=== PATIENT | male | born 1975 | race African-American/Black ===

== ENCOUNTER → 2021-10-22 | Outpatient (CLI) | payer OTHER ==
--- NOTE | 2021-10-23 05:45 | MR ---
EXAMINATION TYPE: MR brain wo/w con DATE OF EXAM: 10/22/2021 COMPARISON: 07/07/2014 HISTORY: Migraines. CONTRAST: Standard multiplanar, multisequence MRI departmental protocol images were obtained without contrast a nd with 10 mL intravenous Gadavist gadolinium contrast. There is some mild cerebral atrophy. On the T2 and FLAIR images there are numerous foci of abnormal i ncreased signal at the alaniz-white matter junction both cerebral hemispheres. Total number is approxim ately 30 and these lesions measure up to 8 mm. There is no midline shift. There is no sign of intracr anial hemorrhage. There is 3 mm focus of increased signal in the anterior left side of the yojana. Cere bellum appears intact. Corpus callosum is intact. There is no evidence of a sellar mass. There is no evidence of orbital mass. Diffusion images show no sign of an acute infarct. The contrast images show no pathologic enhancement. There is normal enhancement of the venous sinuses . IMPRESSION: Numerous white matter high signal foci are somewhat peripheral and more likely related to microvascul ar ischemia. No enhancement. Demyelinating disease not excluded. Lesions in the white matter are slig htly increased compared to last exam.
== END | disposition home or self-care (01) ==
LOC: RADMRIMAIN 21:41
PROVIDERS: ATTEND Physician Assistant Medical
DX: G43.009 Migraine without aura, not intractable, without status migrainosus (principal)
CPT/HCPCS: 70553; A9585

== ENCOUNTER 2022-02-08 19:08 | Emergency (ER) | payer OTHER ==
[2022-02-08] MEDS ORDERED: ASPIRIN 81 MG PO STA (19:57)
[2022-02-08] MEDS ORDERED: NITROGLYCERIN SL TABS 0.4 MG TAB SUBLINGUAL STA (19:58)
--- NOTE | 2022-02-08 20:00 | ED ---
Chest Pain HPI - General Chief Complaint: Chest Pain Stated Complaint: Chest/jaw pain,high BP Time Seen by Provider: 02/08/22 19:48 Source: patient, RN notes reviewed Mode of arrival: ambulatory Limitations: no limitations - History of Present Illness Initial Comments: 47-year-old male with a history of fibromyalgia no personal history of heart disease though his mother in his age of a cardiac arrest who states that he's been having 3 days of intermittent pain across his chest and 4 days of jaw pain and right side. Most the pain is described as sharp he currently is pain is 3-4/10 in his right jaw. Prior to these presentations he's never had pain like this before. He additionally complains some other pains that seem to be unrelated. He has had shoulder pain hip pain back pain relates this to his fibromyalgia. The pain in the chest jaw area has been severe is 5/10 severity. Patient does admit to being a smoker of both marijuana and tobacco. MD Complaint: chest pain, other - Related Data Home Medications Medication Instructions Recorded Confirmed Amitriptyline HCl [Elavil] 10 mg PO HS 02/08/22 02/08/22 Ibuprofen [Motrin Ib] 200 mg PO Q8H PRN 02/08/22 02/08/22 Multivit-Mins/Iron/Folic/Lycop 1 tab PO DAILY 02/08/22 02/08/22 [Centrum Men's Tablet] Pregabalin [Lyrica] 50 mg PO HS 02/08/22 02/08/22 Ubidecarenone [Co Q-10] 200 mg PO DAILY 02/08/22 02/08/22 Vitamin B Complex 1 cap PO DAILY 02/08/22 02/08/22 amLODIPine [Norvasc] 10 mg PO DAILY 02/08/22 02/08/22 Previous Rx's Medication Instructions Recorded Nitroglycerin 0.4 mg SUBLINGUAL Q5M #25 tab 02/08/22 Allergies Allergy/AdvReac Type Severity Reaction Status Date / Time No Known Allergies Allergy Verified 02/08/22 21:14 Review of Systems ROS Statement: Those systems with pertinent positive or pertinent negative responses have been documented in the HPI. ROS Other: All systems not noted in ROS Statement are negative. Past Medical History Past Medical History: Fibromyalgia, Rheumatoid Arthritis (RA) Additional Past Medical History / Comment(s): "lesions on brain" History of Any Multi-Drug Resistant Organisms: None Reported Past Surgical History: No Surgical Hx Reported Past Psychological History: No Psychological Hx Reported Smoking Status: Current every day smoker Past Alcohol Use History: None Reported Past Drug Use History: Marijuana General Exam - General Exam Comments Initial Comments: This a well-developed well-nourished awake alert oriented 3 male Limitations: no limitations General appearance: alert, in no apparent distress Head exam: Present: atraumatic, normocephalic, normal inspection Eye exam: Present: normal appearance, PERRL, EOMI. Absent: scleral icterus, conjunctival injection, periorbital swelling ENT exam: Present: normal exam, mucous membranes moist Neck exam: Present: normal inspection, full ROM, other (ALLERGY). Absent: tenderness, meningismus, lymphadenopathy Respiratory exam: Present: normal lung sounds bilaterally. Absent: respiratory distress, wheezes, rales, rhonchi, stridor Cardiovascular Exam: Present: regular rate, normal rhythm, normal heart sounds. Absent: systolic murmur, diastolic murmur, rubs, gallop, clicks GI/Abdominal exam: Present: soft, normal bowel sounds. Absent: distended, tenderness, guarding, rebound, rigid Extremities exam: Present: normal inspection, full ROM, normal capillary refill. Absent: tenderness, pedal edema, joint swelling, calf tenderness Back exam: Present: normal inspection Neurological exam: Present: alert, oriented X3, CN II-XII intact Psychiatric exam: Present: normal affect, normal mood Skin exam: Present: warm, dry, intact, normal color. Absent: rash Course Vital Signs 02/08/22 02/08/22 19:19 20:30 Temperature 97.8 F Pulse Rate 85 83 Respiratory 16 20 Rate Blood Pressure 136/98 121/88 O2 Sat by Pulse 98 97 Oximetry - Reevaluation(s) Reevaluation #1: 02/08/22 21:58 Patient did seem to get resolution of his symptoms after nitro and aspirin. Chest Pain MDM - MDM Imaging reviewed no acute findings. I did have one discussed with patient's findings. The initial presentation appears be consistent with angina I did offer admission to the patient he does not want to be admitted this time he does have an appointment to see his doctor in 2 days. We did discuss return parameters in detail patient will be discharged with instructions to take a baby aspirin daily and a short prescription of nitroglycerin will be ordered. We also did discuss smoking cessation and risks of pain. Disposition Clinical Impression: Atypical chest pain, Smoking Disposition: HOME SELF-CARE Condition: Stable Instructions (If sedation given, give patient instructions): Chest Pain (ED), How to Stop Smoking (ED) Additional Instructions: One baby aspirin daily and nitroglycerin when necessary chest pain Prescriptions: Nitroglycerin 0.4 mg SUBLINGUAL Q5M #25 tab Is patient prescribed a controlled substance at d/c from ED?: No Referrals: Triny Aviles MD [Primary Care Provider] - 1-2 days Decision Date: 02/08/22 Decision Time: 22:10
[2022-02-08 20:11] LABS: Basophils # (A) 0.2 k/uL (0-0.2); Basophils % (A) 2 %; Eosinophils # (A) 0.3 k/uL (0-0.7); Eosinophils % (A) 3 %; HCT 48.4 % (39.0-53.0); HGB 15.2 gm/dL (13.0-17.5); Lymphocytes # (A) 1.7 k/uL (1.0-4.8); Lymphocytes % (A) 20 %; MCH 29.9 pg (25.0-35.0); MCHC 31.4 g/dL (31.0-37.0); MCV 95.3 fL (80.0-100.0); Mean Platelet Volume 7.2; Monocytes # (A) 0.6 k/uL (0-1.0); Monocytes % (A) 7 %; Neutrophils # (A) 5.6 k/uL (1.3-7.7); Neutrophils % (A) 66 %; Platelet Count 253 k/uL (150-450); RBC 5.09 m/uL (4.30-5.90); RDW 12.6 % (11.5-15.5); WBC 8.5 k/uL (3.8-10.6)
--- NOTE | 2022-02-08 20:12 | XR ---
EXAMINATION TYPE: XR chest 2V DATE OF EXAM: 02/08/2022 8:04 PM COMPARISON: None TECHNIQUE: XR chest 2V Frontal and lateral views of the chest. CLINICAL INDICATION:Male, 47 years old with history of Chest pain; FINDINGS: Lungs/Pleura: There is flattening of the diaphragm with increased lucency of the lungs. No evidence o f pneumothorax, pleural effusion or focal consolidation. Pulmonary vascularity: Unremarkable. Heart/mediastinum: Cardiomediastinal silhouette is unremarkable. Musculoskeletal: No acute osseous pathology. IMPRESSION: 1. No acute cardiopulmonary disease process. 2. COPD changes.
[2022-02-08 20:31] VITALS: RESP 20
[2022-02-08 20:34] LABS: Partial Thromboplastin Time 27.5 sec (22.0-30.0); Prothrombin Time 10.9 sec (9.0-12.0)
[2022-02-08 20:47] LABS: Potassium 5.2 mmol/L (3.5-5.1)
[2022-02-08 20:48] LABS: ALT 65 U/L (4-49); AST 51 U/L (17-59); African American GFR (CKD) >90 (>60 ml/min/1.73 sqM); Albumin 4.5 g/dL (3.5-5.0); Alkaline Phosphatase 105 U/L (38-126); Anion Gap 6 mmol/L; Blood Urea Nitrogen 15 mg/dL (9-20); Calcium 9.7 mg/dL (8.4-10.2); Carbon Dioxide 27 mmol/L (22-30); Chloride 104 mmol/L (98-107); Glucose 95 mg/dL (74-99); Magnesium 1.6 mg/dL (1.6-2.3); Non-African American GFR(CKD) 79 (>60 ml/min/1.73 sqM); Sodium 137 mmol/L (137-145); Total Bilirubin 0.6 mg/dL (0.2-1.3); Total Protein 7.7 g/dL (6.3-8.2)
[2022-02-08 23:37] VITALS: BP 126/58; PULSE 82; TEMP 98
== END 2022-02-08 22:40 | disposition home or self-care (01) ==
LOC: EC 19:08
DX: R07.89 Other chest pain (principal); R68.84 Jaw pain; F17.200 Nicotine dependence, unspecified, uncomplicated; J44.9 Chronic obstructive pulmonary disease, unspecified; M79.7 Fibromyalgia; Z79.1 Long term (current) use of non-steroidal anti-inflammatories (NSAID)
CPT/HCPCS: 36415; 71046; 80053; 82550; 83735; 84484; 85025; 85379; 85610; 85730; 99285

== ENCOUNTER → 2022-08-18 | Outpatient (CLI) | payer OTHER ==
[2022-08-18 11:12] VITALS: BP 131/88; PULSE 75; RESP 18; TEMP 97.9
--- NOTE | 2022-08-18 14:43 | P.PAINPG ---
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 Pt states pain level is at 5 /10 in intensity, constant, localized in the mid to lower lumbar spine, tight in character w shooting pain towards the RLE. Pain is provoked by walking/ standing for periods of 15 min. Pain is alleviated by massage at home, THC products, therma heat patches, repositioning and rest. PMH: Fibromyalgia, RA PSH: Denies SH: Daily tobacco use, No ETOH abuse, +Cannabis use. FH: Non contributory All: NKDA Meds: See list REVIEW OF ORGAN SYSTEMS: CONSTITUTIONAL: No fevers or chills. No recent weight loss. NEUROLOGICAL: + numbness and tingling along the distal extremities. No seizure disorders or headaches. MUSCULOSKELETAL: + pain PSYCHIATRIC: Denies current depression or suicidal thoughts. Physical Examinations : Constitutional : Cooperative , not in acute distress . Neurologic : Cranial nerve II to XII intact. No focal neurological deficits. Psychiatric : alert & oriented x 3. Matching mood & appropriate affect. Judgment & insight intact. Musculoskeletal : Cervical Spine Motor strength in the deltoid and biceps: Normal right side. Normal Left side Motor strength biceps and the wrist extensors: Normal right side . Normal left side Motor strength in the triceps muscle: Normal right side. Normal left side Deep tendon reflexes: Normal at the biceps. Normal at Brachioradialis. Normal at triceps Vertebral body tenderness to deep palpation over Cervical facet loading test: positive bilaterally Spurling test: positive bilaterally Neck distraction test: positive bilaterally Nils sign: positive bilaterally Lumbar spine Motor strength lower extremities ,thigh and legs 5/5 Right side , 5/5 Left side Deep tendon reflexes : Normal Knee Jerk. Normal Ankle Jerk Vertebral body tenderness over L4, L5 Lumbar facet Loading Test: positive Right / positive Left Range of motion of the lumbar spine Flexion 30 degrees, extension 10 degrees Straight Leg Raise test: Left/ Right positive at degree Baylee test: positive right / positive left. Severe tenderness over the Sacroiliac joint on the Right / Left sides Gaenslen test: positive bilaterally Seated flexion test: positive bilaterally. Sacral spine : Severe tenderness over the Sacroiliac joint: right side / left side Range of motion: Flexion of the lumbar spine <60 degrees Range of motion: Extension of the lumbar spine <20 degrees Gaenslen's Test positive Vance's Test positive Baylee test: positive right side / left side Thigh Thrust Test Sacral Thrust Test Imaging: To obtain x ray of the lumbar spine from 2021 from [facility] on Assessment/ Plan : Lumbar DDD Recommendation of obtaining lumbar spine imaging. Script for MRI without contrast of the lumbar spine re: M51.36. May need PT though pt states that his insurance plan has not covered it in the past. May return to our clinic within 4 - 6 wks for a re evaluation. Risks, benefits of procedure discussed and patient verbalized understanding. Denies aspirin or anti- coagulant use or medical history of diabetes. Protocol for discontinuation/ continuation of medications julia procedure discussed. All questions answered. I have spent greater than 30 minutes on patient care today. Dr Rose was available by phone for the evaluation of this patient. The time was used to review the medical records including relevant urine studies and Prescription history (MAPs), review of the available imaging, evaluation and examination of the patient, coordination of care with the medical staff and if applicable referring physicians, as well as creation of the medical record Home Medications: Ambulatory Orders Amitriptyline HCl [Elavil] 10 mg PO HS 02/08/22 Ibuprofen [Motrin Ib] 200 mg PO Q8H PRN 02/08/22 Multivit-Mins/Iron/Folic/Lycop [Centrum Men's Tablet] 1 tab PO DAILY 02/08/22 Nitroglycerin 0.4 mg SUBLINGUAL Q5M #25 tab 02/08/22 Pregabalin [Lyrica] 50 mg PO HS 02/08/22 Ubidecarenone [Co Q-10] 200 mg PO DAILY 02/08/22 Vitamin B Complex 1 cap PO DAILY 02/08/22 amLODIPine [Norvasc] 10 mg PO DAILY 02/08/22 Controlled Substance Measures - Controlled Substance Measures Is patient prescribed a controlled substance at discharge?: No
== END ==
LOC: PNWHC3 09:03
PROVIDERS: ATTEND Specialist
DX: M51.36 Other intervertebral disc degeneration, lumbar region (principal); M06.9 Rheumatoid arthritis, unspecified; F17.200 Nicotine dependence, unspecified, uncomplicated
CPT/HCPCS: 99211

== ENCOUNTER → 2022-09-07 | Outpatient (CLI) | payer OTHER ==
--- NOTE | 2022-09-07 22:06 | MR ---
EXAMINATION TYPE: MR lumbar spine wo con DATE OF EXAM: 09/07/2022 9:56 PM COMPARISON: 12/08/2014. CLINICAL INDICATION:Male, 47 years old with history of M51.36; TECHNIQUE: Multi planar, multi sequence imaging was performed utilizing: T1-weighted, T2-weighted, a nd turbo inversion recovery imaging of the lumbar spine. IV Contrast: None. FINDINGS: Alignment: The lumbar vertebral bodies have preserved heights and alignment. Cord: The conus medullaris and the distal spinal cord appear unremarkable with regards to their signa l intensity and morphology. Bones/Discs: Bone signal is within normal limits. Minimal osteophyte formation most pronounced at L2-L3. Mild Modic endplate changes superior anterior endplate of L4. The signal is mildly desiccated L5-S1. L1-L2: No evidence of significant spinal canal stenosis or neural foraminal stenosis. L2-L3: No evidence of significant spinal canal stenosis or neural foraminal stenosis. L3-L4: No evidence of significant spinal canal stenosis or neural foraminal stenosis. L4-L5: Disc bulge and facet joint arthropathy result in no significant spinal canal and mild bilatera l neural foraminal stenosis. L5-S1: No evidence of significant spinal canal stenosis. Facet joint arthropathy mild bilateral neura l foraminal stenosis. Other findings: None. IMPRESSION: 1. No significant change from prior, No definitive evidence of disc herniation or significant spinal canal stenosis. Nothing to correlate patient's radiculopathy symptoms. 2. Minimal disc degeneration with associated osteoarthritic changes.
== END | disposition home or self-care (01) ==
LOC: RADMRIMAIN 09:10
PROVIDERS: ATTEND Physician Assistant Medical
DX: M51.36 Other intervertebral disc degeneration, lumbar region (principal); M47.816 Spondylosis without myelopathy or radiculopathy, lumbar region
CPT/HCPCS: 72148

== ENCOUNTER → 2022-09-21 | Outpatient (CLI) | payer OTHER ==
[2022-09-21 09:51] VITALS: BP 162/82; PULSE 75; RESP 18; TEMP 98.1
--- NOTE | 2022-09-21 14:33 | P.PAINPG ---
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 Pain level is currently at 7 /10 in intensity, constant, localized in the lumbar spine, dull/ achy in character w shooting towards the BLEs. Pain is provoked by sedentary for several hours at bedtime. Pain is alleviated with PT but his insurance wouldn't cover it, massage therapy at home, topicals, medications are contraindicated for work, +THC products, repositioning and rest. Interventional pain procedures completed include Denies Patient is currently on Denies Patient denies any side effects of the medication(s), denies excessive drowsiness or sleepiness, denies suicidal ideation and reports that the current pain medication is helping to control the pain and improve activities of daily living. Patient denies any motor or sensory deficits. Patient denies any fever or night sweats, denies any change in the bowel movements or urination. Physical Examination: -Constitutional: Cooperative. Not in acute distress . - Neurologic: Cranial nerve II to XII intact. No focal neurological deficits. - Psychatric: Alert & oriented x 3. Matching mood & appropriate affect. Judgment and insight intact. - Musculoskeletal: Cervical spine: Muscle bulk/ tone/ strength in the bilateral upper extremities normal Vertebral body tenderness to palpation over Spurling test positive Distraction test positive Facet loading test positive Thoracic spine Muscle bulk / tone/ strength in the bilateral paraspinal muscles normal Vertebral body tender to palpation over Facet loading test positive Lumbar spine: Motor bulk/ tone/ strength lower extremities , thigh and legs : 5/5 Deep tendon reflexes : Normal Knee Jerk. Normal Ankle Jerk . Vertebral body tenderness to palpation over L4 Lumbar Facet Loading Test positive Straight Leg Raise: positive at 30 degrees right side/ left side Gaenslen's Test positive Sacral spine : Severe tenderness over the Sacroiliac joint: right side / left side Range of motion: Flexion of the lumbar spine <60 degrees Range of motion: Extension of the lumbar spine <20 degrees Gaenslen's Test positive Baylee test: positive right side / left side Thigh Thrust Test Sacral Thrust Test Imaging: MRI without contrast of the lumbar spine from 09/07/22 reviewed Assessment and plan: Chronic low back pain secondary to lumbar DDD, spondylosis with facet arthropathy without myelopathy Recommendation of GAURAV L5-S1 #1. May need a series of injections, up to 3 within a 6 mo period, for optimal pain relief. Risks, benefits of procedure discussed and pt verbalized understanding. Admits to anticoagulant use or medical history of diabetes. Protocol for discontinuation/ continuation of medications julia procedure discussed. All patient questions answered I have spent less than 30 minutes on patient care today. Dr Rose was available by phone for the evaluation of this patient. The time was used to review the medical records including relevant urine studies and Prescription history (MAPs), review of the available imaging, evaluation and examination of the patient, coordination of care with the medical staff and if applicable referring physicians, as well as creation of the medical record PQRS Narrative: Hx Alcohol Use (MH) No Home Medications: Ambulatory Orders Amitriptyline HCl [Elavil] 10 mg PO HS 02/08/22 Ibuprofen [Motrin Ib] 200 mg PO Q8H PRN 02/08/22 Multivit-Mins/Iron/Folic/Lycop [Centrum Men's Tablet] 1 tab PO DAILY 02/08/22 Nitroglycerin 0.4 mg SUBLINGUAL Q5M #25 tab 02/08/22 Pregabalin [Lyrica] 50 mg PO HS 02/08/22 Ubidecarenone [Co Q-10] 200 mg PO DAILY 02/08/22 Vitamin B Complex 1 cap PO DAILY 02/08/22 amLODIPine [Norvasc] 10 mg PO DAILY 02/08/22 Controlled Substance Measures - Controlled Substance Measures Is patient prescribed a controlled substance at discharge?: No
== END ==
LOC: PNWHC3 09:17
PROVIDERS: ATTEND Specialist
DX: M47.816 Spondylosis without myelopathy or radiculopathy, lumbar region (principal); M51.36 Other intervertebral disc degeneration, lumbar region
CPT/HCPCS: 99211

== ENCOUNTER 2022-10-11 06:04 | Day surgery (SDC) | payer OTHER ==
[2022-10-10 10:23] VITALS: BMI 29.9
[2022-10-11 06:42] VITALS: TEMP 97
[2022-10-11] MEDS ORDERED: LACTATED RINGERS 1,000 ML IV ONE (06:45)
[2022-10-11] MEDS ORDERED: methylPREDNISolone ACETATE 80 MG/ML 1 ML VIAL ONE (06:55)
[2022-10-11] MEDS ORDERED: IOPAMIDOL M200 10 ML VIAL ONE (06:55)
--- NOTE | 2022-10-11 07:09 | P.PCN ---
Date of Procedure: 10/11/22 Procedure(s) Performed: PREOPERATIVE DIAGNOSIS: 1- Lumbar Degenerative Disc Diseases 2-Lumbar spondylosis with Facet arthropathy without myelopathy. 3-lumbar foraminal stenosis POSTOPERATIVE DIAGNOSIS: Same as preop diagnosis. PROCEDURE 1. Lumbar epidural steroid injection under fluoroscopic guidance at the L5-S1 level. (Fluoroscopy imaging was available in radiology department) 2. Lumbar epidurogram. ANESTHESIA: Local anesthesia with lidocaine 1% 3 ml only. EBL: Minimal PROCEDURE INDICATION: The patient with low back pain and radiculitis symptoms unresponsive to conservative treatment. Fluoroscopy was used to optimize visualization of the needle placement and to maximize safety. PROCEDURE DESCRIPTION / TECHNIQUE: The patient was seen and identified in the preoperative area. Risks, benefits, complications including but not limited to infections ,bleeding ,allergic reaction to the medications ,nerve damage and not complete pain releife , and alternatives were discussed with the patient. The patient agreed to proceed with the procedure and signed the consent. IV was started, and vital signs were stable. Patient was taken to the OR and time out was completed. The patient was placed in the prone position on procedure table and a pillow was placed under the abdomen to reduce lumbar lordosis. The lumbosacral area was prepped and draped in the usual sterile fashion.ere closely monitored during the procedure.. Vital signs was monitered during the entire procedure. Using anterior-posterior fluoroscopy, the L5-S1 interlaminar space was identified and the skin over this site was marked and then infiltrated with 1% lidocaine subcutaneously. Subsequently, a 20-gauge Tuohy epidural needle was inserted and advanced toward the epidural space using the ``Loss of resistance technique and guided by AP and lateral fluoroscopy. The correct needle position in the epidural space was verified with the injection of 2 mL of the water soluble contrast dye Isovue 200 contrast and observing an excellent epidurogram with the epidural spread of the dye, after negative aspiration for blood and CSF and in the absence of paresthesias. Again after negative aspiration, a 6 ml mixture containing 80 mg of Depo-medrol ( Preservetive Free ), and 2 ml of p reservative free Normal Saline, and 2 ml of preservative free lidocaine 1% solution was injected and a washout of epidurogram was seen. Needle was withdrawn intact, skin was cleansed, and bandages were applied. COMPLICATIONS: None DISPOSITION / PLANS: The patient was placed in a supine position and transferred to the recovery area in a stable condition for observation. There was no evidence of lower extremity motor or sensory deficit after the procedure. Patient was discharged from the recovery room after meeting discharge criteria. Home discharge instructions were given to the patient by the staff. The patient was reexamined prior to discharge. The patient will schedule a follow up in the clinic in 2-4 weeks.
[2022-10-11] MEDS ORDERED: IV FLUID CONTINUATION 1,000 ML IV ONE (07:11)
[2022-10-11 07:15] VITALS: PULSE 70; RESP 16
[2022-10-11 07:25] VITALS: BP 131/87
--- NOTE | 2022-10-11 07:46 | FL ---
Intraoperative/procedural fluoroscopic services were provided. Total fluoroscopy time is 2 seconds w ith a total of 1 submitted images to PACS. Please see the operative/procedural note for further detai ls.
[2022-10-11] MEDS ORDERED: LIDOCAINE 1% (10MG/ML) FOR IV START INTRADERMA PRN (08:02)
[2022-10-11] MEDS ORDERED: LACTATED RINGERS 1,000 ML IV SCH (08:02)
== END 2022-10-11 07:41 | disposition home or self-care (01) ==
LOC: ORPAIN 06:04
PROVIDERS: ATTEND Specialist
DX: M51.36 Other intervertebral disc degeneration, lumbar region (principal); M48.061 Spinal stenosis, lumbar region without neurogenic claudication; M47.816 Spondylosis without myelopathy or radiculopathy, lumbar region
CPT/HCPCS: 62323; J1040; Q9966